=== PATIENT | female | born 1985 | race Caucasian/White ===

== ENCOUNTER 2022-02-08 18:35 | Emergency (ER) | payer OTHER, SELFPAY ==
[2022-02-08] VITALS (18 sets, daily range): BP systolic 95–114; BP diastolic 67–84; PULSE 81–122; RESP 17–86; TEMP 37; O2SAT 80–100
--- NOTE | ~2022-02-08 | CT_ITS ---
EXAMINATION: CT abdomen pelvis wo con DATE: 02/08/2022 21:59 INDICATION: Right flank pain TECHNIQUE: Computed tomography (CT) of the abdomen and pelvis was performed without intravenous contr ast. Automated exposure control and iterative reconstruction technique were employed. Exam dose: 188 .06 mGy-cm total exam DLP. COMPARISON: None. FINDINGS: Lung bases are clear. Normal heart size. No pericardial or pleural effusion. The liver, gallbladder, bile ducts, spleen, pancreas, pancreatic duct, adrenal glands are unremarkabl e. Ureters right perinephric fat haziness and minimal right hydroureteronephrosis, without evidence of a ny urinary tract calculus. Differential diagnosis includes pyelonephritis, vesicoureteral reflux or r ecently passed calculus versus ureteral stricture or mass. No renal mass lesion is evident. The urinary bladder, uterus and adnexal areas are unremarkable. Normal caliber of the abdominal aorta. No intraperitoneal or retroperitoneal or pelvic mass lesion or adenopathy or ascites is evident. Normal appendix. No bowel obstruction or intraperitoneal free air. Small fat-containing umbilical hernia. Included skeletal structures are unremarkable. IMPRESSION: Right perinephric fat truncation and minimal right hydroureteronephrosis; differential d iagnosis given above Reviewed, dictated and finalized at Location [facility]. Reviewed, dictated and finalized at location B. IMPRESSION: Right perinephric fat truncation and minimal right hydroureteronep hrosis; differential diagnosis given above
[2022-02-08 21:03] LABS: Appearance Urine Slightly Cloudy (Clear); Bilirubin Urine Negative (Negative); Blood Urine 1+ (Negative); Color Urine Yellow (Yellow); Glucose Urine UA Negative (Negative); Ketones Urine 1+ mg/dL (Negative); Leukocyte Esterase Ur 3+ LEU/UL (Negative); Nitrate Urine Negative (Negative); Protein Urine Trace mg/dL (Negative); Specific Grav Ur <= 1.005 (1.001-1.035); Urobilinogen Urine 0.2 mg/dL (<2.0)
--- NOTE | 2022-02-08 21:09 | ED.FEMALEGU ---
HPI - Female Genitourinary General Chief complaint: Urogenital-Female Stated complaint: dysuria Time Seen by Provider: 02/08/22 20:48 History of Present Illness HPI Narrative: 37-year-old female presents emergency room for evaluation of right flank pain. States pain has been present for approximately 1 week. Patient denies any dysuria or hematuria. Also denies a fever. Patient denies any injury or trauma. Denies any nausea or vomiting, diarrhea or constipation. Related Data Allergies Allergy/AdvReac Type Severity Reaction Status Date / Time No Known Allergies Allergy Unverified 05/04/19 17:05 Review of Systems Review of Systems: CONSTITUTIONAL: Denies fever, chills, or sweats. EYES: Denies visual changes, redness, or discharge. ENT: Denies rhinorrhea, congestion, sore throat, or otalgia. CARDIOVASCULAR: Denies chest pain, palpitations, or edema. RESPIRATORY: Denies cough or dyspnea. GASTROINTESTINAL: Reports right flank pain GENITOURINARY: Denies dysuria or hematuria. SKIN: Denies rash or itching. MUSCULOSKELETAL: Denies back pain, joint pain, or myalgia. NEUROLOGIC: Denies headache, numbness, dizziness, or weakness. PSYCHIATRIC: Denies anxiety or depression. Exam Narrative: GENERAL: Well-appearing, well-nourished, no physical limitations, and in no acute distress. HEAD: Normocephalic, atraumatic. EYES: Conjunctivae normal, PERRLA and EOMI. CHEST: Clear to auscultation. No respiratory distress. No wheezes rales or rhonchi. No tenderness. HEART: Regular rate and rhythm. No murmur heard. Normal peripheral pulses. ABDOMEN: Soft, nontender, nondistended, normal active bowel sounds. BACK: Right CVA tenderness EXTREMITIES: Normal range of motion. No edema. No clubbing or cyanosis SKIN: Warm, dry, no rash. No noted wounds NEURO: No focal deficits. Alert and oriented x3. MAEW. CN's II-XI intact bilaterally, normal gait PSYCH: Cooperative. Normal mood and affect. Course Vital Signs Vital signs: Vital Signs Temperature 37.0 C 02/08/22 18:45 Pulse Rate 122 H 02/08/22 18:45 Respiratory Rate 20 02/08/22 18:45 Blood Pressure 112/73 02/08/22 18:45 Pulse Oximetry 100 08/07/22 18:45 Oxygen Delivery Room Air 02/08/22 18:45 Temperature 37.0 C 02/08/22 18:45 Pulse Rate 122 H 02/08/22 18:45 Respiratory Rate 20 02/08/22 18:45 Blood Pressure 112/73 02/08/22 18:45 Pulse Oximetry 100 02/08/22 18:45 Oxygen Delivery Room Air 02/08/22 18:45 MDM - Female Genitourinary MDM Narrative Medical decision making narrative: 37-year-old female presented the emergency room with right flank pain. CT scan showed mild hydronephrosis and hydroureter with no evidence of Keyshawn nephritis. Urine was positive for leukocytes and and blood. White count showed a leukocytosis. Patient either had an infected kidney stone or pyelonephritis. Patient was given a gram of Rocephin a liter of fluid and Toradol and responded well. Will send patient home with Keflex with instructions to follow-up with urology and her primary care physician Lab Data Result diagrams: 02/08/22 21:21 02/08/22 21:21 Labs: Lab Results 02/08/22 02/08/22 02/08/22 Range/Units 20:55 21:21 21:21 WBC 16.5 H (4.5-10.0) K/mm3 RBC 4.31 (4.2-5.4) M/mm3 Hgb 12.5 (12.0-15.0) g/dL Hct 39.6 (37.0-47.0) % MCV 91.9 (80-100) fl MCH 29.0 (26-34) pg MCHC 31.6 L (32-36) g/dl RDW 13.3 (11.5-14.5) % Plt Count 231 (150-375) k/mm3 MPV 9.9 (7.4-10.4) fl Immature Gran % (Auto) 0.5 (0-0.5) % Neut % (Auto) 78.4 H (45.5-73.1) % Lymph % (Auto) 12.9 L (18.3-44.2) % [place] % (Auto) 7.7 (2.6-8.5) % Eos % (Auto) 0.1 (0-4.4) % Baso % (Auto) 0.4 (0.2-1.2) % Lymph # (Auto) 2.12 (0.9-3.2) K/mm3 [place] # (Auto) 1.3 H (0.1-0.6) K/mm3 Eos # (Auto) 0.0 (0-0.3) K/mm3 Baso # (Auto) 0.1 (0.0-0.1) K/mm3 Abs Immat Gran (auto) 0.08 H (0.00-0.031)
[2022-02-08 21:13] LABS: Bacteria Urine 4+ /hpf; Mucus Urine Rare /lpf; Squamous Epithelial Cell Urine Many /hpf (Few); WBC Urine >75 /hpf
[2022-02-08 21:14] LABS: Add Urine Microscopic? YES
[2022-02-08] MEDS: KETOROLAC 30 MG/ML VIAL (*BKC) IV PUSH (21:22)
[2022-02-08] MEDS: SODIUM CHLORIDE 0.9% IV 1,000 ML 999 ML IV CONT (21:22)
[2022-02-08 21:33] LABS: Basophils Absolute Auto 0.1 K/mm3 (0.0-0.1); Basophils Percent Auto 0.4 % (0.2-1.2); Eosinophils Percent Auto 0.1 % (0-4.4); Hematocrit 39.6 % (37.0-47.0); Hemoglobin 12.5 g/dL (12.0-15.0); Immature Granulocyte Absolute 0.08 K/mm3 (0.00-0.031); Immature Granulocyte Percent A 0.5 % (0-0.5); Lymphocytes Absolute Auto 2.12 K/mm3 (0.9-3.2); Lymphocytes Percent Auto 12.9 % (18.3-44.2); Mean Corpuscular HGB Conc 31.6 g/dl (32-36); Mean Corpuscular Volume 91.9 fl (80-100); Mean Platelet Volume 9.9 fl (7.4-10.4); Monocytes Absolute Auto 1.3 K/mm3 (0.1-0.6); Monocytes Percent Auto 7.7 % (2.6-8.5); Neutrophils Absolute Auto 12.9 K/mm3 (1.3-6.7); Neutrophils Percent Auto 78.4 % (45.5-73.1); Platelet Count Result 231 k/mm3 (150-375); Red Blood Count 4.31 M/mm3 (4.2-5.4); Red Cell Distribution Width 13.3 % (11.5-14.5); White Blood Count 16.5 K/mm3 (4.5-10.0)
[2022-02-08 21:47] LABS: Alanine Aminotransferase 16 U/L (6-35); Albumin Level 4.1 g/dL (3.5-5.1); Alkaline Phosphatase 67 U/L (38-126); Anion Gap 11 mmol/L (8-16); Aspartate Amino Transferase 26 U/L (14-36); Bilirubin,Total 0.4 mg/dL (0.2-1.3); Blood Urea Nitrogen 8 mg/dL (7-17); Calcium 8.8 mg/dL (8.4-10.2); Carbon Dioxide 26 mmol/L (22-30); Chloride 96 mmol/L (98-107); Estimated CRCL calculation 67 ml/min; Estimated Glomerular Filt Rate > 60; Glucose 94 mg/dL (65-110); Potassium 3.8 mmol/L (3.4-5.0); Sodium 133 mmol/L (137-145)
== END 2022-02-08 23:01 | disposition home or self-care (01) ==
PROVIDERS: Emergency Provider Nurse Practitioner Family
DX: N39.0 Urinary tract infection, site not specified (principal); N13.30 Unspecified hydronephrosis
CPT/HCPCS: 36415; 74176; 80053; 81001; 81025; 85025; 87077; 87086; 87186; 96361; 96365; 96375; 99284; J0696; J1885; J7030

== ENCOUNTER 2025-01-18 13:59 | Emergency (ER) | payer OTHER, SELFPAY ==
[2025-01-18] VITALS (7 sets, daily range): BP systolic 118–151; BP diastolic 63–87; PULSE 60–80; RESP 16–17; TEMP 36.4–36.6; O2SAT 96–100
--- NOTE | ~2025-01-18 | CT_ITS ---
EXAMINATION: CT abdomen pelvis w con DATE: 01/18/2025 18:29 INDICATION: abd pain, N/V/D, fevers TECHNIQUE: Computed tomography (CT) of the abdomen and pelvis was performed with 100 mL Omnipaque-350 intravenous contrast. Automated exposure control and iterative reconstruction technique were employe d. The dose-length product was 210.40 mGy-cm. COMPARISON: 02/08/2022. FINDINGS: Lower thorax: Unremarkable Liver: Enlarged. Periportal edema. Biliary/Gallbladder: Gallbladder is normal size, without stones. Pericholecystic fluid. No bile duct dilation. Pancreas: No mass or duct dilation. Spleen: Normal. Adrenals:No mass. Kidneys: No suspicious mass, obstructing stone, or hydronephrosis. Accessory right renal artery. GI tract: Mild distal esophageal and gastric wall edema. Mild diffuse colonic wall edema. No small or large bowel dilation. Normal appendix. Diverticulosis without diverticulitis. Mesentery/Peritoneum: No ascites, mass, or free air. Retroperitoneum: No mass. Pelvis: Pelvic organs are within normal limits. Moderate volume simple fluid in the deep pelvis. Soft Tissues: Soft tissues and body wall unremarkable. Bones: No acute osseous finding. IMPRESSION: Mild esophagitis/gastritis. Hepatomegaly with periportal edema. Consider acute hepatitis in the differential. No CT findings to s uggest the presence of cholangitis, pyelonephritis, CHF, trauma, or obstruction by hayden hepatic node s. Pericholecystic fluid, without cholelithiasis, gallbladder or duct dilation, or inflammatory change, presumably secondary to the liver process. Mild diffuse colonic wall edema as can be seen with colitis. Moderate volume simple fluid in the deep pelvis. Reviewed, dictated and finalized at location K. IMPRESSION: Mild esophagitis/gastritis. Hepatomegaly with periportal edema. Consider acute hepatitis in the differentia l. No CT findings to suggest the presence of cholangitis, pyelonephritis, CHF, trauma, or obstruction by hayden hepatic nodes. Pericholecystic fluid, without cholelithiasis, gallbladder or duct dilation, or inflammatory change, presumably secondary to the liver process. Mild diffuse colonic wall edema as can be seen with colitis. Moderate volume simple fluid in the deep pelvis.
--- OUTSIDE RECORDS SUMMARY | 2025-01-18 14:14 | XMS_ITS | Clinical Summary ---
Author Organization [facility] Address [address] [place] [address] Care Team Providers Care Caul Dresser Name Role Phone Gus Nguyen MD Primary Care Provider [phone] Source Comments [facility],non-owned Affiliates and Associated Physician Practices is amultiple site organization consisting of ambulatory clinics and hospital sitesin [place], [place], [place] and [place]. This disclosure is being madepursuant to the Care Everywhere program and may not contain all information available regarding this patient. Last updated 18.[facility] Allergies No known active allergies Medications * Be aware that medications may not be up to date on this document. Alwaysverify current medications with the patient. drospirenone-et hinyl estradiol (MERLYN) 3-0.03 MG tabletIndicatio ns:Yesica-Johnso n Syndrome Take 1 tablet by mouth once daily Reasons: Yesica-Ian Syndrome 3 packet 4 08/22/2019 Active Active Problems Problem Noted Date Diagnosed Date Gestational hypertension, third trimester 2019 Poor weight gain of , unspecified trime ster 07/07/2019 Overview (07/07/2019): No weight gain during the . Same as pre- weight. Hyperemesis affecting , antepartum 05/05 History of hyperemesis gravidarum 07/05/2018 Overview (06/07/2019): sent for MFm consult due to poor maternal weight gain Assessment & Plan (07/14/2019 10:45 AM MUSTANGER): No interval weight gain since last since last visit. No ketones. Continuing to use Zofran. Poor growth, affecting management of mother, antepartum condition or complication Assessment & Plan (07/14/2019 10:45 AM MUSTANGER): testing reassuring today. No additional complications. Planning to give child to another family member for adoption Induction of labor scheduled Precautions Planning on pumping colostrum 37 weeks gestation of Resolved Problems Problem Noted Date Diagnosed Date Resolved Date Small for gestational age (SGA) 05/19/2019 06/09/2019 Evaluate anatomy not seen on prior sonogram 06/09/2019 32 weeks gestation of 06/09/2019 Immunizations Immunization Administration Dates Next Due INFLUENZA VACCINE, QUADR. (F LUZONE; FLULAVAL; FLUARIX; AFLURIA QUADRIVALENT; 6MO+), 0.5 ML (IIV4) 05/26/2019 TDAP (7yrs+) 05/26/2019 Family History Medical History Relation Name Comments Other Father well Other Mother well Relation Name Status Comments Father Alive Mother Alive Social History Tobacco Use Types Packs/Day Years Used Date Smoking Tobacco: Never Smokeless Tobacco: Never Alcohol Use Standard Drinks/Week Comments Never 0 (1 standard drink = 0.6 oz pur e alcohol) AUDIT-C Answer Date Recorded Frequency of Alcohol Consumption Never 07/18/2019 Average Number of Drinks Not on file 020 Frequency of Binge Drinking Not on file 07/05 Overall Financial Resource Strain (CARDIA) Answe r Date Recorded Difficulty of Paying Living Expenses Not hard at all 06/09/2019 Hunger Vital Sign Answer Date Recorded Worried About Running Out of Food in the Last Ye ar Never true 06/09/2019 Ran Out of Food in the Last Year Never true 06/09/2019 PRAPARE - Transportation Answer Date Re corded Lack of Transportation (Medical) No 06/09/2019 Lack of Transportation (Non-Medical) No 06/09/2019 Education Answer Date Recorded What is the highest level of school you have completed or the highest degree you have received? 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 Not on file Not on file Not on file Last Filed Vital Signs Vital Sign Reading Time Taken Comments Blood Pressure 110/60 08/22/2019 1:41 PM MUSTANGER Pulse 60 08/22/2019 1:41 PM MUSTANGER Temperature 37 C (98.6 F) 07/20/2019 9:25 AM MUSTANGER Respiratory Rate 18 07/20/2019 9:25 AM MUSTANGER Oxygen Saturation 99% 07/20/2019 9:25 AM MUSTANGER Inhaled Oxygen Concentration - - Weight 64 kg (141 lb) 08/22/2019 1:41 PM MUSTANGER Height 167.6 cm (5' 6) 08/22/2019 1:41 PM MUSTANGER Body Mass Index 22.76 08/22/2019 1:41 PM MUSTANGER Plan of Treatment Health Maintenance Due Date Last Done Comments LIPID TESTING 1985 MAMMOGRAM 1985 HIV SCREENING 01/07/2000 HEPATITIS C SCREENING 01/02/2003 HEPATITIS B VACCINE (1 of 3 - 19+ 3-dose series) 01/07/2004 HPV VACCINE (1 - 3-dose SCDM series) 01/07/2012 COVID-19 VACCINE ( - 2023-2 5 season) 2024 DEPRESSION SCREENING 07/05/2024 PAP with HPV 08/22/2024 08/22/2019 INFLUENZA VACCINE (#1) 2025 05/26/2019 DTAP/TDAP/TD VACCINES (2 - T d or Tdap) 05/26/2029 05/26/2019 ZOSTER VACCINE (1 of 2) 2035 HIB VACCINE Aged Out No longer eligi ble based on patient's age to complete this topic MENINGOCOCCAL (Group B) VACC INE SHARED DECISION-MAKING Aged Out No longer eligibl e based on patient's age to complete this topic MENINGOCOCCAL GROUPS A/C/Y/W VACCINE Aged Out No longer eligible b ased on patient's age to complete this topic PNEUMOCOCCAL VACCINE Aged Out No long er eligible based on patient's age to complete this topic Procedures Procedure Name Priority Date/Time Associated Diagnosis Comments HPV DETECTION HIGH RISK GEORGETTE Routine 08/22/2019 1:44 PM MUSTANGER Screening for cervical cancer CULTURE STREP B Routine 07/07/2019 11:01 AM MUSTANGER High-risk in third trimester Encounter for screening for Streptococcus B from Last 3 Months or Most Recently Relevant to Health Maintenance Results * HPV DETECTION HIGH RISK GEORGETTE (08/22/2019 1:44 PM MUSTANGER) High Risk Human Papilloma Result Not Detected Not Detected 08/24/2019 4:12 PM MUSTANGER [facility] High Risk Human Papilloma Interp 08/24/2019 4:12 PM MUSTANGER [facility] Comment:High Risk Human Awlter lloma Virus was Not Detected. Pathology/Cytolo gy VAGINA AND CERVIX, CS / Unknown 08/22/2019 1:44 PM MUSTANGER 08/23/2019 11:24 AM MUSTANGER Narrative [facility] - 08/24/2019 4:12 PM MUSTANGER Nucleic acid isolated from the specimen was analyzed with a nucleic acid amplification test (FDA approved Gen-Probe HPV Assay) to detect high risk human papilloma virus (Types: 16, 18, 31, 33, 35, 39, 45, 51, 52, 56, 58, 59, 66, and 68). The reference range is Not Detected. Comment: These test results should not be used as the sole basis for clinical assessment and treatment of patients. These results should always be correlated with other available data (cytology, histology, and clinical information). Ken Mccurdy MD LAB - MICROBIOLOGY ORDERABLES Final Result [facility] [address] [phone] * CULTURE STREP B (07/07/2019 11:01 AM MUSTANGER) Culture [facility] Comment: STREPTOCOCCUS, GROUP B CULTURE Micro Number: [id number] Test Status: Final Specimen Source: VAGINAL/ANORECTAL Specimen Quality: Adequate Result: No group B Streptococcus isolated Note per CDC guidelines optimal recovery is achieved by swabbing both the lower vagina and rectum (through the anal sphincter). Test Performed at: [facility] [address] [place] [phone] DENILSON KOLB DO,MPH Microbiology MISCELLANEOUS SAMPLES / Unknown 07/07/2019 11:01 AM MUSTANGER 07/07/2019 1:41 PM MUSTANGER Ken Mccurdy MD LAB - MICROBIOLOGY ORDERABLES Final Result [facility] [address] [place] [address] from Last 3 Months or Most Recently Relevant to Health Maintenance Insurance [facility] Advance Directives * Full Code (Latest Code Status on File) Date Activated Date Inactivated Comments 07/18/2019 10:12 PM 07/20/2019 1:37 PM Care Teams Caul Dresser Relationship Specialty Start Date End Date Gus Nguyen MD [address] [place] [address] PCP - General 06/05/19
--- OUTSIDE RECORDS SUMMARY | 2025-01-18 14:14 | XMS_ITS | Clinical Summary ---
Author Organization [facility] Address [address] [place] [id number] Care Team Providers Care Electrostatic Powder Coating Technician Name Role Phone None, Provider MD Primary Care Provider Unavaila ble Allergies No known active allergies Medications metoclopramide 5 MG tablet Take 5 mg by mouth 4 (four) times daily. Active acetaminophen 325 MG tablet Take 650 mg by mouth every 6 (six) hours as needed for Pain. Active Social History Tobacco Use Types Packs/Day Years Used Date Smoking Tobacco: Never Smokeless Tobacco: Never Alcohol Use Standard Drinks/Week Comments No 0 (1 standard drink = 0.6 oz pur e alcohol) Humiliation, Afraid, Rape, and Kick questionnair e Answer Date Recorded Fear of Current or Ex-Partner No Emotionally Abused No 03/28/2019 Physically Abused No 03/28/2019 Sexually Abused No 03/28/2019 AUDIT-C Answer Date Recorded Frequency of Alcohol Consumption Never 03/28/2019 Average Number of Drinks Not on file 019 Frequency of Binge Drinking Not on file 03/06 Comments No Sex and Gender Information Value Date Recorded Sex Assigned at Not on file Legal Sex Female 5:17 PM CDT Gender Identity Not on file Sexual Orientation Not on file Last Filed Vital Signs Vital Sign Reading Time Taken Comments Blood Pressure 107/55 03/28/2019 8:34 PM CDT Pulse 80 03/28/2019 8:34 PM CDT Temperature 36.7 C (98 F) 03/28/2019 6:00 PM CDT Respiratory Rate 18 03/28/2019 6:35 PM CDT Oxygen Saturation 100% 03/28/2019 5:31 PM CDT Inhaled Oxygen Concentration - - Weight 68 kg (150 lb) 03/28/2019 6:00 PM CDT Height 167.6 cm (5' 6) 03/28/2019 6:00 PM CDT Body Mass Index 24.21 03/28/2019 6:00 PM CDT Plan of Treatment Health Maintenance Due Date Last Done Comments Cervical Cancer Screening Pa p Smear (Age 30 to 64) Every 3 Years 1985 Annual Physical 01/07/1988 Hepatitis C 2003 Hepatitis B Vaccines (1 of 3 - 19+ 3-dose series) 01/07/2004 Cervical Cancer Screening Pa p with HPV Testing (Age 30 to 64) Every 5 Years 2015 Cervical Cancer Screening with HPV 2015 COVID-19 Vaccine (1 - 2023-2 5 season) 2024 Mammogram Screening 2025 DTaP, Tdap and Td Vaccines ( 2 - Td or Tdap) 05/26/2029 05/26/2019 HPV Vaccines Aged Out No longer eligi ble based on patient's age to complete this topic Meningococcal B Vaccine Aged Out No l onger eligible based on patient's age to complete this topic Meningococcal Vaccine Aged Out No ramu tobias eligible based on patient's age to complete this topic Pneumococcal Vaccine: Pediat rics (0 to 5 Years) and At-Risk Patients (6 to 49 Years) Aged Out No longer eligi ble based on patient's age to complete this topic RSV Immunizations Under 20 Months Aged Out No longer eligible based on patient's age to complete this topic Insurance [facility] Care Teams Electrostatic Powder Coating Technician Relationship Specialty Start Date End Date None, Provider, PCP - General 03/28/19
--- OUTSIDE RECORDS SUMMARY | 2025-01-18 14:14 | XMS_ITS | Encounter Summary ---
Author Organization [facility] Address [facility] [place] [address] Care Team Providers Care Mixing Roll Operator Name Role Phone None, Provider MD Primary Care Provider Unavaila ble Reason for Referral * Imaging (Routine) - Closed Specialty Diagnoses / Procedures Referred By Abby sharma Referred To Contact RADIOLOGY Diagnoses Right upper quadrant abdominal pain Procedures NM HEPATOBILIARY SCAN W/GB EJECTION FRACTION Ofelia Murphy MD [address] [facility] [address] [place] [address] Phone: tel: fax: Referral ID Status Reason Start Date Expiration Date Visits Re quested Visits Authorized [id number] Closed 12/22/2019 01/20/2021 1 1 * Imaging (Routine) - Closed Specialty Diagnoses / Procedures Referred By Abby sharma Referred To Contact RADIOLOGY Diagnoses Right upper quadrant abdominal pain Procedures US ABD LIMITED Ofelia Murphy MD [address] [facility] [address] [place] [address] Phone: tel: fax: Referral ID Status Reason Start Date Expiration Date Visits Re quested Visits Authorized [id number] Closed 12/22/2019 01/21/2021 1 1 Encounter Details Date Type Department Care Team (Late st Contact Info) Description 12/22/2019 [facility] Documentation [facility] at [place] [facility] [place] [address] Ofelia Murphy MD [address] [facility] [address] [place] [address] Social History Tobacco Use Types Packs/Day Years [...] on file Sexual Orientation Not on file documented as of this encounter Plan of Treatment Scheduled Orders Name Type Priority Associated Diagnoses Orde r Schedule NM HEPATOBILIARY SCAN W/GB EJECTION FRACTION [facility] MED Routine Right upper quadrant abdominal pain Expected: 12/22/2019, Expires: 12/21/2020 documented as of this encounter Results * US ABD LIMITED (01/19/2020 7:52 AM CDT) Anatomical Region Laterality Modality Abdomen Ultrasound 01/19/2020 8:07 AM CDT Impressions 01/19/2020 8:11 AM CDT IMPRESSION: ===== 1. Prominent cholelithiasis with contracted gallbladder. No further evidence of acute cholecystitis. Interpreted By: Aniceto Gordon MD, 01/19/2020 8:07 AM Narrative 01/19/2020 8:11 AM CDT Exam: Right upper quadrant ultrasound Exam Date/Time: 01/19/2020 7:01 AM Reason For Exam: RUQ Pain Patient is 6 months . Mid epigastric and right upper quadrant pain for 3 months. 50 pound weight loss last year. Comparison: None Ultrasound evaluation of the right upper quadrant contents was performed for analysis of grayscale and color Doppler imaging characteristics. Findings: The liver is normal in size and surface contour. There are no abnormal echogenic hepatic lesions. The main body of the pancreas is normal in grayscale appearance. The proximal most head and distal tail are obscured by bowel gas. Numerous calcified gallstones with gallbladder contraction. There is no evidence of gallbladder wall thickening. The wall measures 1.5 mm in thickness. There is no pericholecystic hyperemia noted. The distal common bile duct is normal in caliber and measures 2.6 mm in diameter. The IVC is seen and is patent. The portal vein is patent and shows normal directional and waveform flow on Doppler imaging. The right kidney measures 11.0 cm in greatest dimension. Right kidney shows no evidence of hydronephrosis or abnormal mass or cystic lesion. There is normal flow to the right kidney on Doppler imaging. No Aggarwal's sign on evaluation. ===== Procedure Note Aniceto Gordon MD - 01/19/2020 Exam: Right upper quadrant ultrasound Exam Date/Time: 01/19/2020 7:01 AM Reason For Exam: RUQ Pain Patient is 6 months . Mid epigastric and right upper quadrantpain for 3 months. 50 pound weight loss last year. Comparison: None Ultrasound evaluation of the right upper quadrant contents was performedfor analysis of grayscale and color Doppler imaging characteristics. Findings: The liver is normal in size and surface contour. There are noabnormal echogenic hepatic lesions. The main body of the pancreas isnormal in grayscale appearance. The proximal most head and distal tail areobscured by bowel gas. Numerous calcified gallstones with gallbladdercontraction. There is no evidence of gallbladder wall thickening. Thewall measures 1.5 mm in thickness. There is no pericholecystic hyperemianoted. The distal common bile duct is normal in caliber and measures 2.6mm in diameter. The IVC is seen and is patent. The portal vein is patentand shows normal directional and waveform flow on Doppler imaging. Theright kidney measures 11.0 cm in greatest dimension. Right kidney shows noevidence of hydronephrosis or abnormal mass or cystic lesion. There isnormal flow to the right kidney on Doppler imaging. No Aggarwal's sign onevaluation. ===== IMPRESSION: ===== 1. Prominent cholelithiasis with contracted gallbladder. No furtherevidence of acute cholecystitis. Interpreted By: Aniceto Gordon MD, 01/19/2020 8:07 AM us Ofelia Murphy MD ULTRASOUND Final Result documented in this encounter Visit Diagnoses Diagnosis Right upper quadrant abdominal pain- Primary Abdominal pain, right upper quadrant Right upper quadrant abdominal pain Abdominal pain, right upper quadrant documented in this encounter Care Teams Mixing Roll Operator Relationship Specialty Start Date End Date None, Provider, PCP - General 03/28/19 documented as of this encounter
[2025-01-18] MEDS: SODIUM CHLORIDE 0.9% IV 1,000 ML 999 ML IV CONT ×2 (16:01→17:12)
--- OUTSIDE RECORDS SUMMARY | 2025-01-18 16:20 | XMS_ITS | Clinical Summary ---
Author Organization [facility] Address [address] [place] [address] Care Team Providers Care Svp Monetization Name Role Phone None, Provider MD Primary [...] patient's age to complete this topic Insurance [facility] Care Teams Svp Monetization Relationship Specialty Start Date End Date None, Provider, PCP - General 03/28/19
--- OUTSIDE RECORDS SUMMARY | 2025-01-18 16:20 | XMS_ITS | Encounter Summary ---
Author Organization [facility] Address [facility] [place] [address] Care Team Providers Care Cash Sales Audit Clerk Name Role Phone None, Provider MD Primary Care Provider Unavaila ble Reason for Referral * Imaging (Routine) - Closed Specialty Diagnoses / Procedures Referred By Abby sharma Referred To Contact RADIOLOGY Diagnoses Right upper quadrant abdominal pain Procedures NM HEPATOBILIARY SCAN W/GB EJECTION FRACTION Ofelia Murphy MD [address] [facility] [address] [place] [address] Phone: tel: fax: Referral ID Status Reason Start Date Expiration Date Visits Re quested Visits Authorized [id number] Closed 12/22/2019 01/20/2021 1 1 * Imaging (Routine) - Closed Specialty Diagnoses / Procedures Referred By Abby sharma Referred To Contact RADIOLOGY Diagnoses Right upper quadrant abdominal pain Procedures US ABD LIMITED Ofelia Murphy MD [address] [facility] [address] [place] [address] Phone: tel: fax: Referral ID Status Reason Start Date Expiration Date Visits Re quested Visits Authorized [id number] Closed 12/22/2019 01/21/2021 1 1 Encounter Details Date Type Department Care Team (Late st Contact Info) Description 12/22/2019 [facility] Documentation [facility] at [place] [address] [facility] [place] [address] Ofelia Murphy MD [address] [facility] [address] [place] [id number] Social History Tobacco Use Types Packs/Day Years [...] quadrant documented in this encounter Care Teams Cash Sales Audit Clerk Relationship Specialty Start Date End Date None, Provider, PCP - General 03/28/19 documented as of this encounter
--- OUTSIDE RECORDS SUMMARY | 2025-01-18 16:21 | XMS_ITS | Clinical Summary ---
Author Organization [facility] Scheduling Employee Scheduling Software Address [address] [place] [address] Care Team Providers Care Head Cleaning Porter Name Role Phone Gus Nguyen MD Primary Care Provider [phone] Source Comments [facility] Scheduling Employee Scheduling Software,non-owned Affiliates and Associated Physician Practices is amultiple site organization consisting of ambulatory clinics and hospital sitesin [place], [place], [place] and [place]. This disclosure is being madepursuant to the Care Everywhere program and may not contain all information available regarding this patient. Last updated 18.[facility] Scheduling Employee Scheduling [employer] Allergies No known active allergies Medications * [...] gain Assessment & Plan (07/14/2019 10:45 AM AIRPORT CONTROL OPERATOR): No interval weight gain since last since last visit. No ketones. Continuing to use Zofran. Poor growth, affecting management of mother, antepartum condition or complication Assessment & Plan (07/14/2019 10:45 AM AIRPORT CONTROL OPERATOR): testing reassuring today. No additional complications. 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 on file Not on file Not on file Last Filed Vital Signs Vital Sign Reading Time Taken Comments Blood Pressure 110/60 08/22/2019 1:41 PM AIRPORT CONTROL OPERATOR Pulse 60 08/22/2019 1:41 PM AIRPORT CONTROL OPERATOR Temperature 37 C (98.6 F) 07/20/2019 9:25 AM AIRPORT CONTROL OPERATOR Respiratory Rate 18 07/20/2019 9:25 AM AIRPORT CONTROL OPERATOR Oxygen Saturation 99% 07/20/2019 9:25 AM AIRPORT CONTROL OPERATOR Inhaled Oxygen Concentration - - Weight 64 kg (141 lb) 08/22/2019 1:41 PM AIRPORT CONTROL OPERATOR Height 167.6 cm (5' 6) 08/22/2019 1:41 PM AIRPORT CONTROL OPERATOR Body Mass Index 22.76 08/22/2019 1:41 PM AIRPORT CONTROL OPERATOR Plan of Treatment Health Maintenance Due Date [...] HIGH RISK GEORGETTE Routine 08/22/2019 1:44 PM AIRPORT CONTROL OPERATOR Screening for cervical cancer CULTURE STREP B Routine 07/07/2019 11:01 AM AIRPORT CONTROL OPERATOR High-risk in third trimester Encounter for screening for Streptococcus B from Last 3 Months or Most Recently Relevant to Health Maintenance Results * HPV DETECTION HIGH RISK GEORGETTE (08/22/2019 1:44 PM AIRPORT CONTROL OPERATOR) High Risk Human Papilloma Result Not Detected Not Detected 08/24/2019 4:12 PM AIRPORT CONTROL OPERATOR [facility] High Risk Human Papilloma Interp 08/24/2019 4:12 PM AIRPORT CONTROL OPERATOR [facility] Comment:High Risk Human Walter lloma Virus was Not Detected. Pathology/Cytolo gy VAGINA AND CERVIX, CS / Unknown 08/22/2019 1:44 PM AIRPORT CONTROL OPERATOR 08/23/2019 11:24 AM AIRPORT CONTROL OPERATOR Narrative [facility] - 08/24/2019 4:12 PM AIRPORT CONTROL OPERATOR Nucleic acid isolated from the specimen was [...] MD LAB - MICROBIOLOGY ORDERABLES Final Result [facility] [address] [phone] * CULTURE STREP B (07/07/2019 11:01 AM AIRPORT CONTROL OPERATOR) Culture [facility] Comment: STREPTOCOCCUS, GROUP B CULTURE Micro Number: [id number] Test Status: Final Specimen Source: VAGINAL/ANORECTAL Specimen Quality: Adequate Result: No group B Streptococcus isolated Note per CDC guidelines optimal recovery is achieved by swabbing both the lower vagina and rectum (through the anal sphincter). Test Performed at: [facility] [address] [place] [id number] DENILSON KOLB DO,MPH Microbiology MISCELLANEOUS SAMPLES / Unknown 07/07/2019 11:01 AM AIRPORT CONTROL OPERATOR 07/07/2019 1:41 PM AIRPORT CONTROL OPERATOR Ken Mccurdy MD LAB - MICROBIOLOGY ORDERABLES Final Result [facility] [address] [place] [address] from Last 3 Months or Most Recently Relevant to Health Maintenance Insurance [facility] Member Subscriber Plan / Payer (Ef fective 2018-Present) Name:Radha Beth Relation to Subscriber:Spouse Name:BENEDICT BETH Subscriber ID:Not on file Date of :1973 (Home) Address: [address] [place] [address] Payer ID:[id number] (NAIC) Group ID:Not on file Type:/[facility] Address: [facility] [address] [place] [address] Advance Directives * Full Code (Latest Code Status on File) Date Activated Date Inactivated Comments 07/18/2019 10:12 PM 07/20/2019 1:37 PM Care Teams Head Cleaning Porter Relationship Specialty Start Date End Date Gus Nguyen MD [address] [place] [address] PCP - General 06/05/19
--- OUTSIDE RECORDS SUMMARY | 2025-01-18 16:21 | XMS_ITS | Continuity of Care Document ---
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 It does not include entries that were removed or entered in error. Problem Status Onset Date Problem Type Date of Resolution Comme nts Source [place] affected by slow intrauterine growth, unspecified Active Condition [facility] Medications Combined list of outpatient medications from 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Medications provided include 1) outpatient medications from the last 15 months, and 2) patient-reported medications. Medication Details Route Status Patient Instructions Prescription Expires Prescription Number Last Dispense Date Ordering Provider Order Date Order Qty Source ALPRAZOLAM (ALPRAZOLAM ), 0.25MG, TABLET, ORAL, SANDOZ, 1000 ea. BOTTLE Cancele d [id number] : 2023 0 Pharmac y Data Transac tion Service Facilit y ALPRAZOLAM (ALPRAZOLAM ), 0.25MG, TABLET, ORAL, SANDOZ, 1000 ea. BOTTLE Active [id number] 2023 60 Pharmac y Data Transac tion Service Facilit y ALPRAZOLAM (ALPRAZOLAM ), 0.25MG, TABLET, ORAL, SANDOZ, 1000 ea. BOTTLE Active [id number] 2023 60 Pharmac y Data Transac tion Service Facilit y DEXTROAMPHE TAMINE-AMPH ET ER (dextroamph etamine sulf-saccha rate/amphet amine sulf-aspart ate), 10 MG, CAP ER 24H, ORAL, VELASQUEZ PHARMACE, 100 ea. BOTTLE Cancele d [id number] : 2023 0 Pharmac y Data Transac tion Service Facilit y DEXTROAMPHE TAMINE-AMPH ET ER (dextroamph etamine sulf-saccha rate/amphet amine sulf-aspart ate), 10 MG, CAP ER 24H, ORAL, VELASQUEZ PHARMACE, 100 ea. BOTTLE Cancele d [id number] : 2023 0 Pharmac y Data Transac tion Service Facilit y DEXTROAMPHE TAMINE-AMPH ET ER (dextroamph etamine sulf-saccha rate/amphet amine sulf-aspart ate), 10 MG, CAP ER 24H, ORAL, VELASQUEZ PHARMACE, 100 ea. BOTTLE Active [id number] 4 2023 60 Pharmac y Data Transac tion Service Facilit y DEXTROAMPHE TAMINE-AMPH ET ER (dextroamph etamine sulf-saccha rate/amphet amine sulf-aspart ate), 10 MG, CAP ER 24H, ORAL, VELASQUEZ PHARMACE, 100 ea. BOTTLE Cancele d [id number] : 2023 0 Pharmac y Data Transac tion Service Facilit y DEXTROAMPHE TAMINE-AMPH ET ER (dextroamph etamine sulf-saccha rate/amphet amine sulf-aspart ate), 10 MG, CAP ER 24H, ORAL, VELASQUEZ PHARMACE, 100 ea. BOTTLE Active [id number] 2023 60 Pharmac y Data Transac tion Service Facilit y HYDROCODONE -ACETAMINOP HEN (HYDROCODON E/ACETAMINO PHEN), 5MG-325MG, TABLET, ORAL, MALLINCKROD T PH, 500 ea. BOTTLE Cancele d [id number] : 2023 0 Pharmac y Data Transac tion Service Facilit y HYDROCODONE -ACETAMINOP HEN (HYDROCODON E/ACETAMINO PHEN), 5MG-325MG, TABLET, ORAL, MALLINCKROD T PH, 500 ea. BOTTLE Active [id number] 2023 120 Pharmac y Data Transac tion Service Facilit y HYDROCODONE -ACETAMINOP HEN (HYDROCODON E/ACETAMINO PHEN), 5MG-325MG, TABLET, ORAL, MALLINCKROD T PH, 500 ea. BOTTLE Active [id number] 2023 120 Pharmac y Data Transac tion Service Facilit y HYDROCODONE -ACETAMINOP HEN (HYDROCODON E/ACETAMINO PHEN), 5MG-325MG, TABLET, ORAL, MALLINCKROD T PH, 500 ea. BOTTLE Cancele d [id number] : 2023 0 Pharmac y Data Transac tion Service Facilit y HYDROCODONE -ACETAMINOP HEN (HYDROCODON E/ACETAMINO PHEN), 5MG-325MG, TABLET, ORAL, MALLINCKROD T PH, 500 ea. BOTTLE Active [id number] 4 2023 120 Pharmac y Data Transac tion Service Facilit y Allergies, Adverse Reactions, Alerts Combined list of allergies from 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 It does not include entries that were removed or entered in error. Substance Category Reaction Severity Reaction type Status Date Reported Comments Source No Known Allergies Drug allergy (disorder) active 12/28/2018 [facility] Sa[facility]l [facility] Immunizations Combined list of available immunizations from the 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 Immunization Series Date Given Administered By Site Reaction Lot Number CVX Code Drug Camera Control Operator Status Comments Source tetanus, diphtheria, acellular pertu is [id number] GlaxoSmithKli ne complet ed tetanus, diphtheri a, acellular pertussis 05/26/19 Given Ambulat ory Pharmac y influenza, injectable, quadrivalent- pf 2018 [facility] Arm [id number] 150 Seqirus complet ed influenza , injectabl e, quadrival ent-pf 05/26/19 Given Ambulat ory Pharmac y tetanus toxoid, reduced diphtheria toxoid, and acellular pertu is vaccine, adsorbed 1 2018 Unknown, Provider [id number] 115 SmithKline (SKB) complet ed tetanus toxoid, reduced diphtheri a toxoid, and acellular pertussis vaccine, adsorbed DoD Influenza, injectable, quadrivalent, preservative free 1 2018 Unknown, Provider [id number] 150 Seqirus (SEQ) complet ed Influenza , injectabl e, quadrival ent, preservat arnold free DoD Encounters Combined list of: 1) Encounters from Department of Veterans Affairs facilities going backup to the last 18 months, not all VA inpatient encounters are included; 2) Encounters from the Department of Defense facilities going backup to 280 months. Location Location Details Encounter Type Encounter Number Reason For Visit Attending Provider ADM Date DC Date Status Disposition Source [address] [place] [address] Sa[facility]l [facility])(Fam param Med Tm B Non-AD BCC) TELE CONSULT [id number] Notes Entered by: JONATHAN DE LEON RET 22 Jun 2018 1416 ------- ------- ------- ------- -- SX: Back Pain [facility] FU [facility] /Mynor / HENRIQUE Zavala 06/22 Released to Self Care [address] [place] [address] Saúl [facility])(F amily Med Tm B Non-AD BCC) [address] [place] [address] [facility])(Fam param Med Tm B Non-AD BCC) OUTPATIENT [id number] Back Pain, 363.012 4 DARYA ROSALES 07/07 Released w/o Limitations [address] [place] [address])(F amily Med Tm B Non-AD BCC) [address] [place] [address] Saúl [facility])(Sco tt [facility]) OUTPATIENT [id number] F/U for family life counselor ing [id number] MARQUES GALLEGOS 08/01 Released w/o Limitations [address] [place] [address] Saúl [facility])(S cott [facility]) [address] [place] [address] Sa[facility]l [facility])(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) TELE CONSULT [id number] Notes Entered by: Maren ORTIZ 28 Dec 2018 1355 ------- ------- ------- ------- -- Walk In Pregnan cy Test LISA ALVES 12/28 Referred for Appointment [address] [place] [address] Sa[facility]l [facility])(G ynecolo gy) [address] [place] [address] Saúl [facility])(Sco tt [facility] FAMRES Tm Blue) TELE CONSULT [id number] Notes Entered by: SA RHONDA AMADOR 29 Dec 2018 1335 ------- ------- ------- ------- -- New OB//Med Request SHADY AMADOR 12/29 Medication Refill Forwarded [address] [place] [address] Saúl [facility]S cott OF FAMRES Tm Blue) [address] [place] [address] Saúl [facility])(Sco tt OF Fam Res Tm Green) OUTPATIENT [id number] initial OB STEWARTDEVIKALong 01/17 Released w/o Limitations [address] [place] [address] Saúl [facility])(S cott OF Fam Res Tm Green) [address] [place] [address] Saúl [facility])(Sco tt OF Fam Res Tm Green) TELE CONSULT [id number] Notes Entered by: YASMINE ROSS 18 Jan 2019 1531 ------- ------- ------- ------- -- 1 Wk OB F/U Appt Request / - ajh SHADY AMADOR 01/18 Referred for Appointment [address] [place] [address] Saúl [facility])(S cott OF Fam Res Tm Green) [address] [place] [address] Sa[facility]l [facility])(Sco tt OF Fam Res Tm Green) TELE CONSULT [id number] Notes Entered by: SA RHONDA AMADOR 24 Jan 2019 0906 ------- ------- ------- ------- -- Med Request SHADY AMADOR 01/24 Medication Refill Forwarded [address] [place] [address] Saúl [facility]S cott [facility] Fam Res Tm Green) [address] [place] [address] Saúl [facility])(Sco tt OF Fam Res Tm Green) OUTPATIENT [id number] OB follow- up (approx . 13 weeks - Noah) - discuss N/V NORMAN PITTS 02/01 Released w/o Limitations [address] [place] [address] Saúl [facility])(S cott OF Fam Res Tm Green) [address] [place] [address] Saúl [facility])(Sco tt OF Fam Res Tm Green) OUTPATIENT [id number] EZEQUIEL 16 weeks (for Noah) NORMAN PITTS 02/16 Released w/o Limitations [address] [place] [address] Saúl [facility])(S cott OF Fam Res Tm Green) [address] [place] [address] Saúl [facility])(Sco tt OF Fam Res Tm Green) TELE CONSULT [id number] Notes Entered by: JONATHAN DE LEON RET 20 Mar 2019 0703 ------- ------- ------- ------- -- SX: Symptom s Persist -ER FU Anderso n Dannadebisaba lacy/Isabel n/ BAILEY Gtz 03/20 Referred for Appointment [address] [place] [address] Saúl [facility])(S cott [facility] [employer] Res Tm Green) [address] [place] [address] Saúl [facility])(Sco tt [facility] [employer] Res [employer] Green) OUTPATIENT [id number] Post ER f/u ZABRINA CLARK 03/20 Released w/o Limitations [address] [place] [address] Saúl [facility])(S [facility] [employer] Res Tm Green) [address] [place] [address] Saúl [facility])(Sco tt [facility] [employer] Res [employer] Green) TELE CONSULT [id number] Notes Entered by: DOMI CLARK 23 Mar 2019 1222 ------- ------- ------- ------- -- Lab results ZABRINA CLARK 03/23 Advice Assessment [address] [place] [address] Saúl [facility]S cott [facility] Fam Res Tm Green) [address] [place] [address] [facility])(Sco tt [facility] [employer] Res Tm Green) TELE CONSULT [id number] Notes Entered by: SA RHONDA AMADOR 28 Mar 2019 1332 ------- ------- ------- ------- -- Nausea/ vomitin SHADY Landaverde 03/28 Other Not Elsewhere Classified [address] [place] [address] Saúl [facility] [employer] Res Tm Green) [address] [place] [address] Sa[facility]l [facility])(Sco tt [facility] [employer] Res [employer] Green) TELE CONSULT [id number] Notes Entered by: SA RHONDA AMADOR 29 Mar 2019 0849 ------- ------- ------- ------- -- L&D follow- up SHADY AMADOR 03/29 Referred for Appointment [address] [place] [address] Group Saúl [facility])(S cott [facility] Fam Res Tm Green) [address] [place] [address] Saúl [facility])(Sco tt [facility] Fam Res Tm Green) TELE CONSULT [id number] Notes Entered by: SA RHONDA AMADOR 31 Mar 2019 1646 ------- ------- ------- ------- -- No-Show OB Appt SHADY AMADOR 03/31 Referred for Appointment [address] [place] [address] Sa[facility]l [facility]S cott [facility] Fam Res Tm Green) [address] [place] [address] Saúl [facility])([facility]co tt [facility] Fam Res Tm Green) TELE CONSULT [id number] Notes Entered by: SA RHONDA AMADOR 03 Apr 2019 1627 ------- ------- ------- ------- -- Possibl e yeast infecti on SHADY AMADOR 04/03 Released to Self Care [address] [place] [address] Sa[facility]l [facility]S cott [facility] Fam Res Tm Green) [address] [place] [address] Saúl [facility]Sco tt [facility] Fam Res Tm Green) OUTPATIENT [id number] acute OB - L&D follow- up for N/V ZABRINA CLARK 04/06 Released w/o Limitations [address] [place] [address] Saúl [facility]S cott [facility] Fam Res Tm Green) [address] [place] [address] Saúl [facility]Sco tt [facility] Fam Res Tm Green) OUTPATIENT [id number] EZEQUIEL 28 weeks (for Clark) NORMAN PITTS 05/09 Released w/o Limitations [address] [place] [address] Saúl [facility]S cott [facility] Fam Res Tm Green) [address] [place] [address] [facility])(Sco tt [facility] Fam Res Tm Green) TELE CONSULT [id number] Notes Entered by: SA RHONDA AMADOR 10 May 2019 1202 ------- ------- ------- ------- -- MFM Referra SHADY Chase 05/10 Other Not Elsewhere Classified [address] [place] [address] Saúl [facility]S cott OF Fam Res Tm Green) [address] [place] [address] Group [facility] [employer] [facility])(Sco tt OF Fam Res Tm Green) TELE CONSULT [id number] Notes Entered by: OSCAR SPANN 24 May 2019 1302 ------- ------- ------- ------- -- Network results [facility]/MFM 019 ZABRINA WILCOX 05/24 Other Not Elsewhere Classified [facility] Sa[facility]l [facility])(S cott OF Fam Res Tm Green) [address] [place] [address] Group [employer] ([facility]Sco tt OF Fam Res Tm Green) TELE CONSULT [id number] Notes Entered by: SA RHONDA AMADOR 25 May 2019 0847 ------- ------- ------- ------- -- [facility] update ZABRINA CLARK 05/25 Released to Self Care [facility] Sa[facility]l [facility])(S cott OF Fam Res Tm Green) [address] [place] [address] Group Saúl [facility])(Sco tt [facility] Fam Res Tm Green) OUTPATIENT [id number] Notes Entered by: SAW HEBERT 26 May 2019 0818 ------- ------- ------- ------- -- ZABRINA SERRANO 05/26 Released w/o Limitations [address] [place] [address] Group Sa[facility]l [facility] ([facility]S cott OF Fam Res Tm Green) [address] [place] [address] Group [facility] [employer] [facility])(Sco tt [facility] Fam Res Tm Green) TELE CONSULT [id number] Notes Entered by: SA RHONDA AMADOR 26 May 2019 1017 ------- ------- ------- ------- -- MFM consult RAYNE TURNER 05/[address] [place] [address] Group [facility] [employer] [facility])(S cott OF Fam Res Tm Green) [address] [place] [address] Group [facility] [facility])(Sco tt [facility] Fam Res Tm Green) TELE CONSULT [id number] Notes Entered by: SA RHONDA AMADOR 05 Jun 2019 0853 ------- ------- ------- ------- -- Back pain SHADY AMADOR 06/05 Referred for Appointment [address] [place] [address] Group Saúl [facility]S cott [facility] [employer] Res Tm Green) [address] [place] [address] Saúl [facility]Sco tt [facility] Res Green) OUTPATIENT [id number] acute OB (for Clark) - R side lower back and glute pain, OMT ONDINA MCKINLEY 06/05 Released with Work/Duty Limitations [address] [place] [address] Group [facility]S cott [facility] [employer] Res Tm Green) [address] [place] [address] [facility]Sco tt [facility] [employer] Res [employer] Green) TELE CONSULT [id number] Notes Entered by: SA RHONDA AMADOR 09 Jun 2019 1554 ------- ------- ------- ------- -- MFM results //follo w-up appt SHADY AMADOR 06/09 Other Not Elsewhere Classified [address] [place] [address] Group [facility]S cott [facility] [employer] Res Tm Green) [address] [place] [address] [facility]co tt [facility] [employer] Green) TELE CONSULT [id number] Notes Entered by: SA RHONDA AMADOR 12 Jun 2019 1412 ------- ------- ------- ------- -- Blood sugar monitor ing SHADY AMADOR 06/12 Other Not Elsewhere Classified [address] [place] [address] Group [facility]S cott [facility] [employer] Res [employer] Green) [address] [place] [address] Group Saúl [facility])(Sco tt [facility] [employer] Green) OUTPATIENT [id number] Notes Entered by: SA RHONDA AMADOR 14 Jun 2019 1543 ------- ------- ------- ------- -- Glucome SHADY Diaz 06/14 Released w/o Limitations [address] [place] [address] Saúl [facility] Fam Res Tm Green) [address] [place] [address] Saúl [facility])([facility] Tm Blue) TELE CONSULT [id number] Notes Entered by: RAYNE TURNER 15 Jun 2019 0932 ------- ------- ------- ------- -- OB care SHADY AMADOR 06/15 Other Not Elsewhere Classified [address] [place] [address] [facility]l [facility] ([facility] FAMRES Tm Blue) [address] [place] [address] Saúl [facility])(War rior Op Med Cln Tm A Ad) OUTPATIENT [id number] stomach issues [phone] SANDRA ALAS 09/18 Released w/o Limitations [address] [place] [address] Sa[facility]l [facility])(W arrior Op Med Cln Tm A Ad) [address] [place] [address] Saúl [facility])(Sco tt [facility]) OUTPATIENT [id number] virtual appt for family life counselor ing [phone] MARQUES GALLEGOS 09/26 Released w/o Limitations [address] [place] [address] Saúl [facility])([facility]) [address] [place] [address] Saúl [facility]) OUTPATIENT [id number] [facility] F/U-SX persist -abdomi nal pain-Vi rtual-6 [id number] OSVALDO EARL 12/19 Released w/o Limitations [address] [place] [address] Sa[facility]l [facility])(S [facility] FAMRES Tm Blue) [address] [place] [address] Sa[facility]l [facility])(Sco tt [facility] Blue) TELE CONSULT [id number] Notes Entered by: MARIANNA PRICE 20 Dec 2019 0800 ------- ------- ------- ------- -- Advised to Schedul e Face to Face Appt / [facility] / - sgj CORY JIMENES 12/19 Referred for Appointment [address] [place] [address] Saúl [facility])([facility] FAMRES Tm Blue) [address] [place] [address] Sa[facility])(Sco tt [facility] Tm Blue) OUTPATIENT [id number] In-pers on/RUQ pain MANISHA MALDONADO 12/20 Released w/o Limitations [address] [place] [address] [facility] FAMRES Tm Blue) [address] [place] [address] Sa[facility]l [facility])(Ob/ [employer]) TELE CONSULT [id number] Notes Entered by: JIMMIE BEVERLY LT 13 Jan 2021 0819 ------- ------- ------- ------- -- Pregnan cy initiat ion TRINITY KURTZ 01/13 Released to Self Care [address] [place] [address])(O b/[employer]) [address] [place] [address])(Ob/ [employer]) TELE CONSULT [id number] Notes Entered by: JESS RHOADES RD 14 Jan 2021 0934 ------- ------- ------- ------- -- urine culture TRINITY KURTZ 01/14 Released to Self Care [address] [place] [address])(O b/[employer]) [address] [place] [address])(Ob/ [employer]) OUTPATIENT [id number] 2 recent +preg but does not want to keep, discuss ion on options THERESA LOPEZ 01/15 Released w/o Limitations [address] [place] [address] Saúl [facility])(O b/[employer]) [address] [place] [address])(Sco tt [facility] [employer] Tm Blue) OUTPATIENT [id number] Virtual -lower abdomin al pain x 2 weeks-6 [phone]. [phone] INDERJIT PEDERSEN 07/24 Released w/o Limitations [address] [place] [address] Saúl B [facility])(S marisa [facility] Tm Blue) [address] [place] [address] Saúl [facility])(Sco tt [facility] Tm Blue) TELE CONSULT [id number] 3 Notes Entered by: INDERJIT PEDERSEN 25 Jul 2021 1319 ------- ------- ------- ------- -- Famotid jeanne INDERJIT PEDERSEN Camila 07/25 Released to Self Care [address] [place] [address])(S cott [facility] FAMRES Tm Blue) [address] [place] [address])(Sco tt [facility] FAMRES Tm Blue) TELE CONSULT [id number] Notes Entered by: DEX MORATAYA 12 Feb 2022 0714 ------- ------- ------- ------- -- ER f/u/Andreea res/618 .363.01 24 MIGUEL KING 02/12 Released to Self Care [address] [place] [address])(S cott [facility] FAMRES Tm Blue) [address] [place] [address])(Sco tt [facility] FAMRES Tm Blue) OUTPATIENT [id number] F2F- GROWTH ON BUTTOCK S AND PUBIC AREA- MENG BUCK 09/08 Released w/o Limitations [address] [place] [address])(S cott [facility] FAMRES Tm Blue) [address] [place] [address])(Uti lization Managemen t) TELE CONSULT [id number] Notes Entered by: NAJMA NOEL 09 Sep 2022 1307 ------- ------- ------- ------- -- Non-net work Provide r Request -Return for Additio nal Info NAJMA NOEL 09/09 Other Not Elsewhere Classified [address] [place] [address])(U tilizat ion Managem ent) [address] [place] [address])(Sco tt [facility] Fam Res Tm Green) TELE CONSULT [id number] MENG BUCK 09/15 Released to Self Care [address] [place] [address])(S cott [facility] [facility] [address] [place] [address])(Sco tt [facility]) TELE CONSULT [id number] Notes Entered by: GALINA FORBES 18 Sep 2022 1132 ------- ------- ------- ------- -- Lab Order Request / HEBER / DIMITRIOS IVY WOLFGANG 09/18 Other Not Elsewhere Classified [facility] Saúl PARRA [place]S marisa [facility] Tm Blue) Procedures Combined list of: 1) Procedures from Department of Veterans Affairs facilities going back up to thelast 18 months, not all VA non-surgical procedures are included; 2) All procedures from the Department of Defense facilities. Procedure Procedure Type Code Date Perfomer Comments Sourc e No data available for this section Ambul[facility] Pharmacy BRIEF EMOTIONAL/BEHAVIOR AL ASSESSMENT (EG, DEPRESSION INVENTORY, ATTENTION-DEFICIT/ HYPERACTIVITY DISORDER [ADHD] SCALE), WITH SCORING AND DOCUMENTATION, PER STANDARDIZED INSTRUMENT 09/10/19 23 DoD TELE ASSESS & MGT SRV PROV QUAL NONPHYS HLTH CARE PRO TO EST PAT,PARENT,GUARD NOT ORIG REL ASSESS & MGT SRV PROV W/IN PREV 7 DAYS NOR LEAD ASSESS & MGT SRV/PX W/IN NXT 24 HR/SOON APT;5-10 MIN MED DIS 02/13/20 22 DoD TELE ASSESS & MGT SRV PROV QUAL NONPHYS HLTH CARE PRO TO EST PAT,PARENT,GUARD NOT ORIG REL ASSESS & MGT SRV PROV W/IN PREV 7 DAYS NOR LEAD ASSESS & MGT SRV/PX W/IN NXT 24 HR/SOON APT;5-10 MIN MED DIS 07/25/19 22 DoD ULTRASOUND, ABDOMINAL, REAL TIME WITH IMAGE DOCUMENTATION; COMPLETE 12/22/19 20 DoD TELE ASSESS & MGT SRV PROV QUAL NONPHYS HLTH CARE PRO TO EST PAT,PARENT,GUARD NOT ORIG REL ASSESS & MGT SRV PROV W/IN PREV 7 DAYS NOR LEAD ASSESS & MGT SRV/PX W/IN NXT 24 HR/SOON APT;5-10 MIN MED DIS 12/20/19 20 DoD BRIEF COMM TECH-BASE SERV,E.G. VIRT CHK-IN,BY PHYS/OTH QUAL HCP,RPT E&M SERV,PROV TO EST PT,NOT ORIG FRM REL E/M SERV PROV W/IN PREV 7DAY NOR LEAD TO E/M SRV/PX W/IN NEXT 24HR/SOON NIMCO; 5-10 MIN DISC 09/27/19 20 DoD BRIEF COMM TECH-BASE SERV,E.G. VIRT CHK-IN,BY PHYS/OTH QUAL HCP,RPT E&M SERV,PROV TO EST PT,NOT ORIG FRM REL E/M SERV PROV W/IN PREV 7DAY NOR LEAD TO E/M SRV/PX W/IN NEXT 24HR/SOON NIMCO; 5-10 MIN DISC 09/20/19 [facility] GLUCOSE, BLOOD BY GLUCOSE MONITORING DEVICE(S) CLEARED BY THE FDA SPECIFICALLY FOR HOME USE 06/14/20 [facility] ULTRASOUND, UTERUS, REAL TIME WITH IMAGE DOCUMENTATION, LIMITED (EG, HEART BEAT, PLACENTAL LOCATION, POSITION AND/OR QUALITATIVE AMNIOTIC FLUID VOLUME), 1 OR MORE FETUSES 06/05/20 [facility] OSTEOPATHIC MANIPULATIVE TREATMENT (OMT); 3-4 BODY REGIONS INVOLVED 05/26/20 [facility] SUBSEQ CARE VISIT () [EXCLS:PATIENTS WHO ARE SEEN FOR A CONDITION UNREL TO / CARE (EG,AN UP RESPIR INFECT;PATIENTS SEEN FOR CONSULTATION ONLY,NOT FOR CONT CARE)] 04/07/20 [facility] SUBSEQ CARE VISIT () [EXCLS:PATIENTS WHO ARE SEEN FOR A CONDITION UNREL TO / CARE (EG,AN UP RESPIR INFECT;PATIENTS SEEN FOR CONSULTATION ONLY,NOT FOR CONT CARE)] 03/22/20 [facility] TELE ASSESS & MGT SRV PROV QUAL NONPHYS HLTH CARE PRO TO EST PAT,PARENT,GUARD NOT ORIG REL ASSESS & MGT SRV PROV W/IN PREV 7 DAYS NOR LEAD ASSESS & MGT SRV/PX W/IN NXT 24 HR/SOON APT;5-10 MIN MED DIS 03/20/20 [facility] SUBSEQ CARE VISIT () [EXCLS:PATIENTS WHO ARE SEEN FOR A CONDITION UNREL TO / CARE (EG,AN UP RESPIR INFECT;PATIENTS SEEN FOR CONSULTATION ONLY,NOT FOR CONT CARE)] 02/18/20 [facility] SUBSEQ CARE VISIT () [EXCLS:PATIENTS WHO ARE SEEN FOR A CONDITION UNREL TO / CARE (EG,AN UP RESPIR INFECT;PATIENTS SEEN FOR CONSULTATION ONLY,NOT FOR CONT CARE)] 02/03/20 [facility] UNLISTED ULTRASOUND PROCEDURE (EG, DIAGNOSTIC, INTERVENTIONAL) 01/19/20 [facility] BRIEF EMOTIONAL/BEHAVIOR AL ASSESSMENT (EG, DEPRESSION INVENTORY, ATTENTION-DEFICIT/ HYPERACTIVITY DISORDER [ADHD] SCALE), WITH SCORING AND DOCUMENTATION, PER STANDARDIZED INSTRUMENT 08/01/19 19 [facility] TELE ASSESS & MGT SRV PROV QUAL NONPHYS HLTH CARE PRO TO EST PAT,PARENT,GUARD NOT ORIG REL ASSESS & MGT SRV PROV W/IN PREV 7 DAYS NOR LEAD ASSESS & MGT SRV/PX W/IN NXT 24H/SOON APT; 11-20 MIN MED DIS 06/22/20 18 [facility] Transabdominal Ultrasound Obstetric Transabdominal Ultrasound Obstetric [id number] 01/19/20 19 DEVIKA STEWART [facility] OB Services Antepartum Care Only 1st Visit, With Flowsheet OB Services Antepartum Care Only 1st Visit, With Flowsheet [id number] 01/19/20 19 NOAH BASIA [facility] Health And Behav A e mt Each 15 Min Initial A e ment Health And Behav Assessmt Each 15 Min Initial Assessment [id number] 08/04/19 19 MARQUES GALLEGOS [facility] Non-Physician Phone Call To Pt/Provider Intermed (11-20 min) Non-Physician Phone Call To Pt/Provider Intermed (11-20 min) [id number] 06/22/20 18 DARYA ROSALES [facility] OB Services Antepartum Care Only Subsequent Single Visit OB Services Antepartum Care Only Subsequent Single Visit [id number] NORMAN PITTS [facility] Non-Physician Phone Call To Patient/Provider Brief (5-10min) Non-Physician Phone Call To Patient/Provider Brief (5-10min) [id number] BAILEY CUENCA [facility] Osteopathic Manip Treatment (OMT) 3-4 Body Regions Involved Osteopathic Manip Treatment (OMT) 3-4 Body Regions Involved [id number] ZABRINA CLARK [facility] Biophysical Profile Without Stre Or Non-Stre Test Biophysical Profile Without Stress Or Non-Stress Test [id number] ONDINA MCKINLEY [facility] Ultrasound Obstetric Limited Evaluation Ultrasound Obstetric Limited Evaluation [id number] ONDINA MCKINLEY [facility] Fingerstick Blood Glucose Random Fingerstick Blood Glucose Random [id number] SHADY AMADOR 75 [facility] Brief communication technology-based service, e.g. virtual check-in, by a physician or other qualified health care profnancy marie who can report evaluation and management services, provided to an established patient, not originating from a related E/M service provided within the previous 7 days nor leading to an E/M service or procedure within the next 24 hours or soonest available appointment; 5-10 minutes of medical discu jaylen ALAS SANDRA Buitrago [facility] Ultrasound Abdominal Gallbladder Ultrasound Abdominal Gallbladder [id number] MANISHA MALDONADO [facility] Social History Combined list of available smoking, tobacco, and other social history from 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 Social History Type Response Date Comment Sourc e Sex Representation Female (finding) 10/22/2022 Unknown Organization Sexual Orientation Ambula tory Pharmacy Gender identity Ambulator y Pharmacy This section is an empty social history section. [facility] Assessment and Plan Combined list of future care activities from Department of Defense and Veterans Affairs facilities (e.g., assessment and plan notes, appointments, orders, and referrals). Additional future care activities may be listed in the Plan of Care section. Result Assessment and Plan Date Source Assessment and Plan No data available for this section 01/18/2025 Ambulatory Pharmacy Functional Status Combined list of recent functional and cognitive assessments recorded at [facility] Defense and [facility] ([facility]).[facility] Functional [place] Measurement (FIM) Scale: 1 = Total Assistance (Subject = 0% +), 2 = Maximal Assistance (Subject = 25% +), 3 = Moderate Assistance (Subject = 50% +), 4 = Minimal Assistance (Subject = 75% +), 5 = Supervision, 6 = Modified [place] (Device), 7 = Complete [place] (Timely, Safely). Assessment Date/Time Source Assessment Type Assessment Skill Assessment Score Assessment Details No data available for this section
[2025-01-18 16:42] LABS: Hematocrit 38.1 % (37.0-47.0); Hemoglobin 12.4 g/dL (12.0-15.0); Immature Granulocyte Percent A 0.1 % (0-0.5); Lymphocytes Absolute Auto 1.54 K/mm3 (0.9-3.2); Mean Corpuscular HGB Conc 32.5 g/dl (32-36); Mean Corpuscular Hemoglobin 30.0 pg (26-34); Mean Corpuscular Volume 92.3 fl (80-100); Nucleated Red Blood Cells Absolute Auto 0.000 K/mm3 (0.0-0.012); Nucleated Red Blood Cells Perc 0.0 % (0.0-0.2); Platelet Count Result 229 k/mm3 (150-375); Red Blood Count 4.13 M/mm3 (4.2-5.4); White Blood Count 7.6 K/mm3 (4.5-10.0)
[2025-01-18 17:00] LABS: Add Urine Microscopic? YES; Appearance Urine Cloudy (Clear); Glucose Urine UA Negative (Negative); Leukocyte Esterase Ur Trace LEU/UL (Negative); Need Manual Microscopic Reviewed; Nitrate Urine Negative (Negative); Specific Grav Ur 1.035 (1.001-1.035)
[2025-01-18] MEDS: ONDANSETRON INJ 4 MG/2 ML VIAL IV PUSH (17:12)
[2025-01-18] MEDS: FAMOTIDINE 20 MG/2 ML VIAL IV PUSH (17:12)
--- NOTE | 2025-01-18 17:40 | ED_ITS ---
HPI - Nausea/Vomiting/Diarrhea General Chief complaint: Nausea/Vomiting/Diarrhea <DALLIN Becerril Last Filed: 01/19/25 10:56> Stated complaint: n/v/d, fever <DALLIN Becerril Last Filed: 01/19/25 10:56> Time Seen by Provider: 01/18/25 15:31 <DALLIN Becerril Last Filed: 01/19/25 10:56> Source: patient <DALLIN Becerril Last Filed: 01/19/25 10:56> Mode of arrival: ambulatory <DALLIN Becerril Filed: 01/19/25 10:56> Limitations: no limitations <DALLIN Becerril Last Filed: 01/19/25 10:56> History of Present Illness HPI Narrative: Patient is a 40-year-old female who presents the ED with report of nausea, vomiting, diarrhea. Patient reports she began feeling ill on Wednesday. Reported having subjective fevers, chills, body aches, nausea, vomiting. Reports she is unable to keep down any food or drink. Also reports diarrhea, epigastric abdominal pain. Denies rectal bleeding or melena. Feels very weak and dehydrated. States she overall just does not feel well. 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 Denies cough or cold symptoms. <DALLIN Becerril Last Filed: 01/19/25 10:56> Related Data Allergies/Adverse reactions: Allergies Allergy/AdvReac Type Severity Reaction Status Date / Time metoclopramide (From Reglan) AdvReac Intermediate akathisia Verified 01/18/25 19:02 <DALLIN Becerril Last Filed: 01/19/25 10:56> Review of Systems 2 Review of Systems: All systems reviewed & are unremarkable except as noted in HPI. <DALLIN Becerril Last Filed: 01/19/25 10:56> All systems reviewed & are unremarkable except as noted in HPI and below < DLALIN Becerril Last Filed: 01/19/25 10:56> Exam 2 Narrative: GENERAL: Well appearing, thin, non-toxic, in no acute distress. HEAD: Normocephalic, atraumatic. RESPIRATORY: Airway patent, respirations nonlabored. Clear to auscultation bilaterally, no rales, rhonchi, wheezing. CARDIOVASCULAR: Regular rate and rhythm without murmurs, rubs, or gallops. ABDOMINAL: Soft, mild tenderness to palpation epigastric region, no rebound, nondistended. Normoactive BS. MUSCULOSKELETAL: Moves all extremities. No gross deformities. SKIN: Warm, dry, normal color. NEURO: A&O X3. Speech clear. Cranial nerves II-XII grossly intact. Steady gait. No ataxic movements. PSYCHIATRIC: Appropriate mood and affect. Normal interaction. <DALLIN Becerril Last Filed: 01/19/25 10:56> Course Vital Signs Vital signs: Vital Signs Temperature 97.6 F 01/18/25 14:01 Pulse Rate 79 01/18/25 14:01 Respiratory Rate 16 01/18/25 14:01 Blood Pressure 151/86 H 01/18/25 14:01 Pulse Oximetry 100 01/18/25 14:01 Oxygen Delivery Room Air 01/18/25 14:01 Temperature 97.7 F 01/18/25 17:45 Pulse Rate 80 01/18/25 20:38 Respiratory Rate 17 01/18/25 20:38 Blood Pressure 146/87 H 01/18/25 20:38 Pulse Oximetry 98 01/18/25 20:38 Oxygen Delivery Room Air 01/18/25 14:01 <DALLIN Becerril Last Filed: 01/19/25 10:56> Vital Signs Temperature 97.6 F 01/18/25 14:01 Pulse Rate 79 01/18/25 14:01 Respiratory Rate 16 01/18/25 14:01 Blood Pressure 151/86 H 01/18/25 14:01 Pulse Oximetry 100 01/18/25 14:01 Oxygen Delivery Room Air 01/18/25 14:01 Temperature 97.7 F 01/18/25 17:45 Pulse Rate 80 01/18/25 20:38 Respiratory Rate 17 01/18/25 20:38 Blood Pressure 146/87 H 01/18/25 20:38 Pulse Oximetry 98 01/18/25 20:38 Oxygen Delivery Room Air 01/18/25 14:01 <Joanna Bobo APRN - Last Filed: 01/18/25 20:41> MDM - Nausea/Vomiting/Diarrhea MDM Narrative Medical decision making narrative: Patient presented to ED with several day history of nausea, vomiting, diarrhea, subjective fevers, epigastric pain. Vital signs are stable upon arrival. Patient is in no acute distress. Cbc without leukocytosis or anemia. CMP is unremarkable. Lactic acid 0.9. Magnesium within normal limits. CK within normal limits. UA with 3+ ketones, possible signs of infection. Trace leuk esterase, 21-50 RBC, 11-20 WBC, 1+ urine bacteria. Sent for culture. Will treat. CT scan of abdomen/pelvis was obtained and showing gastritis, esophagitis, colitis. I do feel that this fits with patient's clinical picture. Also showing hepatomegaly with periportal edema. Consider acute hepatitis. Will add on hepatitis panel. No other worrisome hepatic findings on imaging. Some pericholecystic fluid, but no other worrisome GB findings or findings of acute cholecystitis. This periportal edema is likely related to the 2 L fluid boluses that patient received in the ED as liver enzymes are again completely normal. Will refer to GI for further/repeat evaluation. Patient is overall feeling improved with supportive therapy. Feel she is safe for discharge home with close outpatient follow-up. Will prescribe Zofran, Protonix, Cipro/Flagyl for home. Given 1st doses of antibiotics in the ED. Given strict return precautions. She is in agreement with plan. Discharged in stable condition. <Suzy Ng PA-C - Last Filed: 01/19/25 10:56> Patient presented to ED with several day history of nausea, vomiting, diarrhea, subjective fevers, epigastric pain. Vital signs are stable upon arrival. Patient is in no acute distress. Cbc without leukocytosis or anemia. CMP is unremarkable. Lactic acid 0.9. Magnesium within normal limits. CK within normal limits. UA with 3+ ketones, possible signs of infection. Trace leuk esterase, 21-50 RBC, 11-20 WBC, 1+ urine bacteria. Sent for culture. Will treat. CT scan of abdomen/pelvis was obtained and showing gastritis, esophagitis, colitis. I do feel that this fits with patient's clinical picture. Also showing hepatomegaly with periportal edema. Consider acute hepatitis. Will add on hepatitis panel. No other worrisome hepatic findings on imaging. Some pericholecystic fluid, but no other worrisome GB findings or findings of acute cholecystitis. This periportal edema is likely related to the 2 L fluid boluses that patient received in the ED as liver enzymes are again completely normal. Will refer to GI for further/repeat evaluation. Patient is overall feeling improved with supportive therapy. Feel she is safe for discharge home with close outpatient follow-up. Will prescribe Zofran, Protonix, Cipro/Flagyl for home. Given 1st doses of antibiotics in the ED. Given strict return precautions. She is in agreement with plan. Discharged in stable condition. 2030-Pt refused to stay for hepatitis panel results and declined IV antibiotic administration. <Joanna Bobo APRN - Last Filed: 01/18/25 20:41> Medical Records Attestation: I reviewed the patient's medical records. <Suzy Ng PA-C - Last Filed: 01/19/25 10:56> Lab Data Attestation: I reviewed the patient's lab results. <Suzy Ng PA-C - Last Filed: 01/19/25 10:56> Result diagrams: 01/18/25 16:33 01/18/25 18:18 <Suzy Ng PA-C - Last Filed: 01/19/25 10:56> Labs: Lab Results 01/18/25 01/18/25 01/18/25 Range/Units 16:33 18:10 18:18 WBC 7.6 (4.5-10.0) K/mm3 RBC 4.13 L (4.2-5.4) M/mm3 Hgb 12.4 (12.0-15.0) g/dL Hct 38.1 (37.0-47.0) % MCV 92.3 (80-100) fl MCH 30.0 (26-34) pg MCHC 32.5 (32-36) g/dl RDW 12.7 (11.5-14.5) % Plt Count 229 (150-375) k/mm3 MPV 10.1 (7.4-10.4) fl Immature Gran % (Auto) 0.1 (0-0.5) % Neut % (Auto) 68.1 (45.5-73.1) % Lymph % (Auto) 20.4 (18.3-44.2) % Marshall % (Auto) 8.7 H (2.6-8.5) % Eos % (Auto) 1.9 (0-4.4) % Baso % (Auto) 0.8 (0.2-1.2) % Lymph # (Auto) 1.54 (0.9-3.2) K/mm3 Marshall # (Auto) 0.7 H (0.1-0.6) K/mm3 Eos # (Auto) 0.1 (0-0.3) K/mm3 Baso # (Auto) 0.1 (0.0-0.1) K/mm3 Abs Immat Gran (auto) 0.01 (0.00-0.031) K/mm3 Absolute Neuts (auto) 5.2 (1.3-6.7) K/mm3 Absolute Nucleated RBC 0.000 (0.0-0.012) K/mm3 Nucleated RBC % 0.0 (0.0-0.2) % Sodium 139 (137-145) mmol/L Potassium 3.7 (3.4-5.0) mmol/L Chloride 103 (98-107) mmol/L Carbon Dioxide 26 (22-30) mmol/L Anion Gap 10 (4-12) mmol/L BUN 9 (7-17) mg/dL Creatinine 0.69 L 0.70 (0.7-1.0) mg/dL Estim Creat Clear Calc 78 77 ml/min Estimated GFR > 60 > 60 (59 - ) Glucose 79 (65-110) mg/dL Lactic Acid 0.9 (0.7-2.0) mmol/L Calcium 9.0 (8.4-10.2) mg/dL Magnesium 2.0 (1.6-2.3) mg/dL Total Bilirubin 0.3 (0.2-1.3) mg/dL AST 27 (14-36) U/L ALT 18 (6-35) U/L Alkaline Phosphatase 59 (38-126) U/L Total Creatine Kinase 35 (30-135) U/L Total Protein 6.8 (6.3-8.2) g/dL Albumin 3.9 (3.5-5.1) g/dL Lipase 47 (23-300) U/L Urine Color Dark yellow (Yellow) Urine Appearance Cloudy H (Clear) Urine pH 5.5 (5.0-9.0) Ur Specific [place] 1.035 (1.001-1.035) Urine Protein 1+ H (Negative) mg/dL Urine Glucose (UA) Negative (Negative) mg/dL Urine Ketones 3+ H (Negative) mg/dL Ur Blood (Man) Trace (Negative) Urine Nitrate Negative (Negative) Urine Bilirubin Negative (Negative) Urine Urobilinogen 0.2 (<2.0) mg/dL Add Ur Microanalysis Reviewed Leukocyte Esterase Rfl Trace H (Negative) ELENA/UL Urine RBC 21-50 H (0-2) /hpf Urine WBC 11-20 H (0-3) /hpf Ur Squamous Epith Cells Occasional (Few) /hpf Urine Bacteria 1+ H /hpf Urine Casts 3-5 Urine Mucus Present /lpf POC Urine HCG, Qual Negative (Negative) Hepatitis A IgM Ab (Negative) Hep Bs Antigen (Negative) Hep B Core IgM Ab (Negative) Hepatitis C Ab Screen 01/18/25 Range/Units 19:05 WBC (4.5-10.0) K/mm3 RBC (4.2-5.4) M/mm3 Hgb (12.0-15.0) g/dL Hct (37.0-47.0) % MCV (80-100) fl MCH (26-34) pg MCHC (32-36) g/dl RDW (11.5-14.5) % Plt Count (150-375) k/mm3 MPV (7.4-10.4) fl Immature Gran % (Auto) (0-0.5) % Neut % (Auto) (45.5-73.1) % Lymph % (Auto) (18.3-44.2) % Marshall % (Auto) (2.6-8.5) % Eos % (Auto) (0-4.4) % Baso % (Auto) (0.2-1.2) % Lymph # (Auto) (0.9-3.2) K/mm3 Marshall # (Auto) (0.1-0.6) K/mm3 Eos # (Auto) (0-0.3) K/mm3 Baso # (Auto) (0.0-0.1) K/mm3 Abs Immat Gran (auto) (0.00-0.031) K/mm3 Absolute Neuts (auto) (1.3-6.7) K/mm3 Absolute Nucleated RBC (0.0-0.012) K/mm3 Nucleated RBC % (0.0-0.2) % Sodium (137-145) mmol/L Potassium (3.4-5.0) mmol/L Chloride (98-107) mmol/L Carbon Dioxide (22-30) mmol/L Anion Gap (4-12) mmol/L BUN (7-17) mg/dL Creatinine (0.7-1.0) mg/dL Estim Creat Clear Calc ml/min Estimated GFR (59 - ) Glucose (65-110) mg/dL Lactic Acid (0.7-2.0) mmol/L Calcium (8.4-10.2) mg/dL Magnesium (1.6-2.3) mg/dL Total Bilirubin (0.2-1.3) mg/dL AST (14-36) U/L ALT (6-35) U/L Alkaline Phosphatase (38-126) U/L Total Creatine Kinase (30-135) U/L Total Protein (6.3-8.2) g/dL Albumin (3.5-5.1) g/dL Lipase (23-300) U/L Urine Color (Yellow) Urine Appearance (Clear) Urine pH (5.0-9.0) Ur Specific [place] (1.001-1.035) Urine Protein (Negative) mg/dL Urine Glucose (UA) (Negative) mg/dL Urine Ketones (Negative) mg/dL Ur Blood (Man) (Negative) Urine Nitrate (Negative) Urine Bilirubin (Negative) Urine Urobilinogen (<2.0) mg/dL Add Ur Microanalysis Leukocyte Esterase Rfl (Negative) ELENA/UL Urine RBC (0-2) /hpf Urine WBC (0-3) /hpf Ur Squamous Epith Cells (Few) /hpf Urine Bacteria /hpf Urine Casts Urine Mucus /lpf POC Urine HCG, Qual (Negative) Hepatitis A IgM Ab Negative (Negative) Hep Bs Antigen Negative (Negative) Hep B Core IgM Ab Negative (Negative) Hepatitis C Ab Screen Pending <Suzy Ng PA-C - Last Filed: 01/19/25 10:56> Lab Results 01/18/25 01/18/25 01/18/25 Range/Units 16:33 18:10 18:18 WBC 7.6 (4.5-10.0) K/mm3 RBC 4.13 L (4.2-5.4) M/mm3 Hgb 12.4 (12.0-15.0) g/dL Hct 38.1 (37.0-47.0) % MCV 92.3 (80-100) fl MCH 30.0 (26-34) pg MCHC 32.5 (32-36) g/dl RDW 12.7 (11.5-14.5) % Plt Count 229 (150-375) k/mm3 MPV 10.1 (7.4-10.4) fl Immature Gran % (Auto) 0.1 (0-0.5) % Neut % (Auto) 68.1 (45.5-73.1) % Lymph % (Auto) 20.4 (18.3-44.2) % Marshall % (Auto) 8.7 H (2.6-8.5) % Eos % (Auto) 1.9 (0-4.4) % Baso % (Auto) 0.8 (0.2-1.2) % Lymph # (Auto) 1.54 (0.9-3.2) K/mm3 [place] # (Auto) 0.7 H (0.1-0.6) K/mm3 Eos # (Auto) 0.1 (0-0.3) K/mm3 Baso # (Auto) 0.1 (0.0-0.1) K/mm3 Abs Immat Gran (auto) 0.01 (0.00-0.031) K/mm3 Absolute Neuts (auto) 5.2 (1.3-6.7) K/mm3 Absolute Nucleated RBC 0.000 (0.0-0.012) K/mm3 Nucleated RBC % 0.0 (0.0-0.2) % Sodium 139 (137-145) mmol/L Potassium 3.7 (3.4-5.0) mmol/L Chloride 103 (98-107) mmol/L Carbon Dioxide 26 (22-30) mmol/L Anion Gap 10 (4-12) mmol/L BUN 9 (7-17) mg/dL Creatinine 0.69 L 0.70 (0.7-1.0) mg/dL Estim Creat Clear Calc 78 77 ml/min Estimated GFR > 60 > 60 (59 - ) Glucose 79 (65-110) mg/dL Lactic Acid 0.9 (0.7-2.0) mmol/L Calcium 9.0 (8.4-10.2) mg/dL Magnesium 2.0 (1.6-2.3) mg/dL Total Bilirubin 0.3 (0.2-1.3) mg/dL AST 27 (14-36) U/L ALT 18 (6-35) U/L Alkaline Phosphatase 59 (38-126) U/L Total Creatine Kinase 35 (30-135) U/L Total Protein 6.8 (6.3-8.2) g/dL Albumin 3.9 (3.5-5.1) g/dL Lipase 47 (23-300) U/L Urine Color Dark yellow (Yellow) Urine Appearance Cloudy H (Clear) Urine pH 5.5 (5.0-9.0) Ur Specific [place] 1.035 (1.001-1.035) Urine Protein 1+ H (Negative) mg/dL Urine Glucose (UA) Negative (Negative) mg/dL Urine Ketones 3+ H (Negative) mg/dL Ur Blood (Man) Trace (Negative) Urine Nitrate Negative (Negative) Urine Bilirubin Negative (Negative) Urine Urobilinogen 0.2 (<2.0) mg/dL Add Ur Microanalysis Reviewed Leukocyte Esterase Rfl Trace H (Negative) ELENA/UL Urine RBC 21-50 H (0-2) /hpf Urine WBC 11-20 H (0-3) /hpf Ur Squamous Epith Cells Occasional (Few) /hpf Urine Bacteria 1+ H /hpf Urine Casts 3-5 Urine Mucus Present /lpf POC Urine HCG, Qual Negative (Negative) Hepatitis A IgM Ab (Negative) Hep Bs Antigen (Negative) Hep B Core IgM Ab (Negative) Hepatitis C Ab Screen 01/18/25 Range/Units 19:05 WBC (4.5-10.0) K/mm3 RBC (4.2-5.4) M/mm3 Hgb (12.0-15.0) g/dL Hct (37.0-47.0) % MCV (80-100) fl MCH (26-34) pg MCHC (32-36) g/dl RDW (11.5-14.5) % Plt Count (150-375) k/mm3 MPV (7.4-10.4) fl Immature Gran % (Auto) (0-0.5) % Neut % (Auto) (45.5-73.1) % Lymph % (Auto) (18.3-44.2) % [place] % (Auto) (2.6-8.5) % Eos % (Auto) (0-4.4) % Baso % (Auto) (0.2-1.2) % Lymph # (Auto) (0.9-3.2) K/mm3 [place] # (Auto) (0.1-0.6) K/mm3 Eos # (Auto) (0-0.3) K/mm3 Baso # (Auto) (0.0-0.1) K/mm3 Abs Immat Gran (auto) (0.00-0.031) K/mm3 Absolute Neuts (auto) (1.3-6.7) K/mm3 Absolute Nucleated RBC (0.0-0.012) K/mm3 Nucleated RBC % (0.0-0.2) % Sodium (137-145) mmol/L Potassium (3.4-5.0) mmol/L Chloride (98-107) mmol/L Carbon Dioxide (22-30) mmol/L Anion Gap (4-12) mmol/L BUN (7-17) mg/dL Creatinine (0.7-1.0) mg/dL Estim Creat Clear Calc ml/min Estimated GFR (59 - ) Glucose (65-110) mg/dL Lactic Acid (0.7-2.0) mmol/L Calcium (8.4-10.2) mg/dL Magnesium (1.6-2.3) mg/dL Total Bilirubin (0.2-1.3) mg/dL AST (14-36) U/L ALT (6-35) U/L Alkaline Phosphatase (38-126) U/L Total Creatine Kinase (30-135) U/L Total Protein (6.3-8.2) g/dL Albumin (3.5-5.1) g/dL Lipase (23-300) U/L Urine Color (Yellow) Urine Appearance (Clear) Urine pH (5.0-9.0) Ur Specific [place] (1.001-1.035) Urine Protein (Negative) mg/dL Urine Glucose (UA) (Negative) mg/dL Urine Ketones (Negative) mg/dL Ur Blood (Man) (Negative) Urine Nitrate (Negative) Urine Bilirubin (Negative) Urine Urobilinogen (<2.0) mg/dL Add Ur Microanalysis Leukocyte Esterase Rfl (Negative) ELENA/UL Urine RBC (0-2) /hpf Urine WBC (0-3) /hpf Ur Squamous Epith Cells (Few) /hpf Urine Bacteria /hpf Urine Casts Urine Mucus /lpf POC Urine HCG, Qual (Negative) Hepatitis A IgM Ab Negative (Negative) Hep Bs Antigen Negative (Negative) Hep B Core IgM Ab Negative (Negative) Hepatitis C Ab Screen Pending <Joanna Bobo APRN - Last Filed: 01/18/25 20:41> Imaging Data Attestation: I personally reviewed and interpreted this imaging study as follows: < Suzy Ng PA-C - Last Filed: 01/19/25 10:56> Radiologist's impression: ITS Impressions Abdomen/Pelvis CT 01/18/25 18:30 IMPRESSION: Mild esophagitis/gastritis. Hepatomegaly with periportal edema. Consider acute hepatitis in the differential. No CT findings to suggest the presence of cholangitis, pyelonephritis, CHF, trauma, or obstruction by hayden hepatic nodes. Pericholecystic fluid, without cholelithiasis, gallbladder or duct dilation, or inflammatory change, presumably secondary to the liver process. Mild diffuse colonic wall edema as can be seen with colitis. Moderate volume simple fluid in the deep pelvis. <Suzy Ng PA-C - Last Filed: 01/19/25 10:56> Discharge Plan Discharge Clinical Impression: Colitis Gastritis Qualifiers: Gastritis type: unspecified gastritis Chronicity: acute Gastritis bleeding: w ithout bleeding Qualified Code(s): K29.00 - Acute gastritis without bleeding UTI (urinary tract infection) Qualifiers: Urinary tract infection type: acute cystitis Hematuria presence: with hematuria Qualified Code(s): N30.01 - Acute cystitis with hematuria <DALLIN Becerril Last Filed: 01/19/25 10:56> Patient Disposition: Home <DALLIN Becerril Last Filed: 01/19/25 10:56> Condition: Stable <DALLIN Becerril Last Filed: 01/19/25 10:56> Instructions: Antibiotic Form, Dehydration (ED), Gastroenteritis (ED), Acute Nausea and Vomiting (ED) <DALLIN Becerril Last Filed: 01/19/25 10:56> Additional Instructions: Take antibiotics as prescribed for colitis, urinary tract infection. It is important you finish both courses. Avoid alcohol use while taking Flagyl as this could cause a vomiting reaction. Utilize zofran as needed for further nausea. Take Protonix daily for acid reflux suppression. Increase fluid intake. Recommend electrolyte rich fluids, gatorade, pedialyte, body armour. Recommend clear liquids or bland diet until symptoms improve, such as bananas, rice, applesauce, toast, or crackers. There was evidence of fluid around your liver on your CT imaging today. This is likely related to the fluids that you were given in the ED. Your liver enzymes were normal. Follow up with your primary care doctor and GI for further evaluation. Call offices to make appointments. Return to the ED if you experience worsening or severe symptoms, unable to keep down food or drink, severe pain, fevers, rectal bleeding, vomiting blood, or any other symptoms of concern. <DALLIN Becerril Last Filed: 01/19/25 10:56> Patient Language: Setswana <DALLIN Becerril Last Filed: 01/19/25 10:56> Prescriptions: New metronidazole 500 mg tablet 500 mg PO Q8H 7 Days Qty: 21 0RF ciprofloxacin HCl 500 mg tablet 500 mg PO Q12H 7 Days Qty: 14 0RF ondansetron 4 mg tablet,disintegrating 4 mg PO Q8H PRN (Reason: nausea and vomiting) Qty: 15 0RF pantoprazole [Protonix] 40 mg tablet,delayed release (DR/EC) 40 mg PO HS 28 Days Qty: 28 0RF No Action cephalexin 500 mg capsule 500 mg PO Q12H 7 Days Qty: 14 0RF <Suzy Ng PA-C - Last Filed: 01/19/25 10:56> Follow-up/Referrals: Joni Infante MD [Physician] - ([facility], [Primary Care Provider] - <Suzy Ng PA-C - Last Filed: 01/19/25 10:56> Time of Disposition: 19:06 <Suzy Ng PA-C - Last Filed: 01/19/25 10:56> 19:06 <Joanna Bobo APRN - Last Filed: 01/18/25 20:41>
[2025-01-18 18:11] LABS: BEDSIDEPREGUCG Negative (Negative)
[2025-01-18 18:19] LABS: Estimated CRCL calculation 77 ml/min; Estimated Glomerular Filt Rate > 60
[2025-01-18] MEDS: CEPHALEXIN 500 MG CAPSULE PO (18:42)
[2025-01-18] MEDS: METOCLOPRAMIDE HCL INJ 10 MG/2 ML VIAL IV PUSH (18:52)
[2025-01-18 18:53] LABS: Alanine Aminotransferase 18 U/L (6-35); Albumin Level 3.9 g/dL (3.5-5.1); Alkaline Phosphatase 59 U/L (38-126); Anion Gap 10 mmol/L (4-12); Aspartate Amino Transferase 27 U/L (14-36); Bilirubin,Total 0.3 mg/dL (0.2-1.3); Blood Urea Nitrogen 9 mg/dL (7-17); Calcium 9.0 mg/dL (8.4-10.2); Carbon Dioxide 26 mmol/L (22-30); Chloride 103 mmol/L (98-107); Creatine Kinase 35 U/L (30-135); Estimated CRCL calculation 78 ml/min; Estimated Glomerular Filt Rate > 60; Glucose 79 mg/dL (65-110); Lipase 47 U/L (23-300); Magnesium 2.0 mg/dL (1.6-2.3); Potassium 3.7 mmol/L (3.4-5.0); Sodium 139 mmol/L (137-145); Total Protein 6.8 g/dL (6.3-8.2)
--- NOTE | 2025-01-18 20:39 | PC.NURSE ---
Pt refusing IV ABX. EDP Dr. Muller and Belen made aware. IV removed and pt given dc instructions. pt verbalized taking abx from pharmacy.
[2025-01-19 10:39] LABS: Hepatitis B Surface Antigen Negative (Negative)
[2025-01-19 10:44] LABS: HAV RESULT Negative (Negative); Hepatitis B Core IgM Result Negative (Negative)
== END 2025-01-18 20:42 | disposition home or self-care (01) ==
PROVIDERS: Emergency Provider Physician Assistant
DX: K29.00 Acute gastritis without bleeding (principal); K52.9 Noninfective gastroenteritis and colitis, unspecified; N30.01 Acute cystitis with hematuria
CPT/HCPCS: 36415; 74177; 80053; 80074; 81001; 81025; 82550; 83605; 83690; 83735; 85025; 96374; 96375; 99284; A9270; J1200; J2405; J2765; J7030; Q9967